=== PATIENT | male | born 1970 | race Caucasian/White ===

== ENCOUNTER 2017-07-25 20:30 | Emergency (ER) | payer OTHER ==
--- NOTE | 2017-07-25 20:32 | NUR ---
CALLED FOR TRIAGE; NO ANSWER
--- NOTE | 2017-07-25 20:50 | NUR ---
CALLED AGAIN; NOT IN WITHER LOBBY
--- NOTE | 2017-07-25 20:57 | NUR ---
CALLED X2 AGAIN; NO ANSWER
== END 2017-07-25 20:57 | disposition left against medical advice (07) ==
LOC: ER 20:30
DX: Z53.21 Procedure and treatment not carried out due to patient leaving prior to being seen by health care provider (principal)

== ENCOUNTER 2017-07-25 21:15 | Emergency (ER) | payer OTHER ==
[~2017-07-25] VITALS: Ht 172.7 cm; Wt 70.3 kg
[2017-07-25 21:18] VITALS: BP 142/70
[2017-07-25] MEDS ORDERED: CODEINE/PROMETHAZINE HCL 5 ML UDC PO STA (22:31)
[2017-07-25] MEDS ORDERED: GUAIFENESIN/D-METHORPHAN HB 5 ML UDC PO STA (22:33)
[2017-07-25] MEDS ORDERED: MENTHOL/CETYLPYRD (CEPACOL) 1 LOZ LOZENGE PO STA (22:33)
[2017-07-25] MEDS ORDERED: GUAIFENESIN/D-METHORPHAN HB 5 ML UDC ONE (22:34)
[2017-07-25] MEDS ORDERED: MENTHOL/CETYLPYRD (CEPACOL) 1 LOZ LOZENGE ONE ×2 (22:35→23:01)
== END 2017-07-25 22:49 | disposition home or self-care (01) ==
LOC: ER 21:16
DX: J06.9 Acute upper respiratory infection, unspecified (principal); Z88.2 Allergy status to sulfonamides; Z88.1 Allergy status to other antibiotic agents
CPT/HCPCS: 71045; 99283; A4606; Z7610